=== PATIENT | female | born 1960 | race Caucasian/White ===

== ENCOUNTER 2017-05-10 14:28 | Emergency (ER) | payer OTHER ==
[2015-05-06 12:43] VITALS: BP 124/43
[~2017-05-10] VITALS: Ht 165.1 cm; Wt 99.8 kg
--- NOTE | 2017-05-10 14:43 | PHYS DOC ---
Adult General Chief Complaint Chief Complaint: LACERATION/AVULSION HPI HPI Patient is a 56 year old female presents the ED complaining of finger injury times one hour ago. Patient states she was trying to open a jar and cut her right thumb on the lid. Describes the pain as sharp. Rates the pain as 6/10. Denies bony injury, decreased ROM, fever, rash, n/v or syncope. Review of Systems Review of Systems Constitutional: Denies fever or chills [] Eyes: Denies change in visual acuity, redness, or eye pain [] HENT: Denies nasal congestion or sore throat [] Respiratory: Denies cough or shortness of breath [] Cardiovascular: No additional information not addressed in HPI [] GI: Denies abdominal pain, nausea, vomiting, bloody stools or diarrhea [] : Denies dysuria or hematuria [] Musculoskeletal: Denies back pain or joint pain [] Integument: Denies rash or skin lesions [] Neurologic: Denies headache, focal weakness or sensory changes [] Endocrine: Denies polyuria or polydipsia [] All other systems were reviewed and found to be within normal limits, except as documented in this note. Current Medications Current Medications Current Medications Medications (Trade) Dose Ordered Sig/Jon Start Time Stop Time Status Last Admin Dose Admin Diphtheria/ Tetanus/Acell Pertussis (Boostrix) 0.5 ml ONCE ONCE 05/10/17 14:45 05/10/17 14:46 DC 05/10/17 14:48 0.5 ML Lidocaine/Sodium Bicarbonate (Buffered Lidocaine 1%) 20 ml 1X ONCE 05/10/17 14:45 05/10/17 14:46 DC 05/10/17 14:46 20 ML Allergies Allergies Allergies Coded Allergies Type Severity Reaction Last Updated Verified No Known Drug Allergies 05/10/17 No Physical Exam Physical Exam Constitutional: Well developed, well nourished, no acute distress, non-toxic appearance. [] HENT: Normocephalic, atraumatic] Eyes: PERRLA, EOMI, conjunctiva normal, no discharge. [] Neck: Normal range of motion, no tenderness, supple, no stridor. [] Cardiovascular:Heart rate regular rhythm, no murmur [] Lungs & Thorax: Bilateral breath sounds clear to auscultation [] Skin: Warm, dry, no erythema, no rash. [] Back: No tenderness, no CVA tenderness. [] Extremities: 2 CM LACERATION TO RIGHT PROXIMAL THUMB. NO BONY TENDERNESS. NO TENDON INJURY. no cyanosis, no clubbing, ROM intact, no edema. [] Neurologic: Alert and oriented X 3, normal motor function, normal sensory function, no focal deficits noted. [] Psychologic: Affect normal, judgement normal, mood normal. [] Current Patient Data Vital Signs Vital Signs Date Time Temp Pulse Resp B/P (MAP) Pulse Ox O2 Delivery O2 Flow Rate FiO2 05/10/17 14:40 98.1 68 18 97 Room Air 98.1 EKG EKG [] Radiology/Procedures Radiology/Procedures [] Course & Med Decision Making Course & Med Decision Making Pertinent Labs and Imaging studies reviewed. (See chart for details) []No bony tenderness. No X-ray warranted. Laceration repaired. No complications. Tetanus up-to-date. Discussed symptomatic treatment. Discussed follow-up for wound reevaluation in 3 days. Provided contact information/ education. Discussed reasons to return to the ED sooner. Patient understands and agrees with plan. Dragon Disclaimer Dragon Disclaimer This electronic medical record was generated, in whole or in part, using a voice recognition dictation system. Departure Departure Impression: Primary Impression: Finger laceration Disposition: 01 HOME, SELF-CARE Condition: IMPROVED Referrals: KOURTNEY CARR (PCP) Patient Instructions: Laceration Care, Adult Scripts Cephalexin (CEPHALEXIN) 500 Mg Capsule 1 CAP PO TID, #21 CAP Prov: MARCELLO AYERS 05/10/17 Laceration/Wound Repair Laceration/Wound Repair : Wound Location: upper extremity (right thumb) Wound's Depth, Shape: superficial Wound Length (cm): 2 Wound Explored: clean Irrigated w/ Saline (ccs): 300 Betadine Prep?: Yes Anesthesia: 1% Lidocaine Wound Repaired With: sutures Suture Size/Type: 4:0 Number of Sutures: 4 Sterile Dressing Applied?: Yes Progress Patient tolerated well. No complications. MARCELLO AYERS May 10, 2017 14:43
[2017-05-10] MEDS ORDERED: LIDOCAINE 1% / SOD BICARB 8.4% 20 ML VIAL. IJ ONE (14:45)
[2017-05-10] MEDS ORDERED: DIPHTH,PERTUSS(ACELL),TET TOX 0.5 ML DISP.SYRIN. VAX IM ONE (14:45)
[2017-05-10] MEDS ORDERED: CEPH500C PO (15:02)
== END 2017-05-10 15:06 | disposition home or self-care (01) ==
LOC: ER 14:28
DX: S61.011A Laceration without foreign body of right thumb without damage to nail, initial encounter (principal); W26.8XXA Contact with other sharp object(s), not elsewhere classified, initial encounter; Y93.89 Activity, other specified; Y92.89 Other specified places as the place of occurrence of the external cause; Y99.8 Other external cause status
CPT/HCPCS: 12001; 90471; 90715; 99283-25